=== PATIENT | female | born 1965 | race American Indian/Alaskan Native ===

== ENCOUNTER 2017-05-21 21:46 | Emergency (ER) | payer BC, OTHER ==
[2017-05-21 21:47] VITALS: BMI 29.0
[2017-05-21 22:03] VITALS: RESP 18; TEMP 97.9
--- NOTE | 2017-05-21 22:43 | ED PDOC ---
Arrival/HPI - General Chief Complaint: Upper Extremity Problem/Injury Time Seen by Provider: 05/21/17 22:29 Historian: Patient - History of Present Illness Narrative History of Present Illness (Text): 05/21/17 22:49 51 year old female, whose medical history includes hypertension, presents to the Emergency department complaining of a sudden muscle spasm in left sided neck. Initially, patient tried massaging it away but then began to feel the same stiffness across upper back and left arm. While in the Emergency department , patient is holding her neck still. Patient denies any trauma/injury, fever, chills, chest pain, shortness of breath, nausea, vomiting, diarrhea, urinary symptoms, headache, dizziness, or any other complaints. Time/Duration: Prior to Arrival Symptom Onset: Sudden Symptom Course: Unchanged Activities at Onset: Rest Past Medical History - Provider Review Nursing Documentation Reviewed: Yes - Genitourinary/Gynecological Other/Comment: fibroids - Psychiatric Hx Depression: No Hx Emotional Abuse: No Hx Physical Abuse: No Hx Substance Use: No - Suicidal Assessment Feels Threatened In Home Enviroment: No Family/Social History - Physician Review Nursing Documentation Reviewed: Yes Family/Social History: Unknown Family HX Smoking Status: Never Smoked Hx Alcohol Use: No Hx Substance Use: No Hx Substance Use Treatment: No Allergies/Home Meds Allergies/Adverse Reactions: Allergies Sulfa (Sulfonamide Antibiotics) Allergy (Verified 09/10/15 01:51) RASH Home Medications: Home Meds Medication Instructions Recorded Confirmed Deprolupra 3.75 mg IM Q30D 09/10/15 09/10/15 Review of Systems - Physician Review All systems were reviewed & negative as marked: Yes - Review of Systems Constitutional: absent: Fevers Respiratory: absent: SOB Physical Exam - Physical Exam Narrative Physical Exam (Text): Gen: NAD Head: NC Eyes: PERRL ENT: MMM, airway patent. No tongue edema. Neck: Supple. No stridor, bruit, pulsatile mass, midline tenderness. Chest: No tenderness CV: Regular rate Lungs: CTA b/l Abd: Soft, NT Back: No CVA tenderness. No midline tenderness. Extremities: No swelling or tenderness Skin: No rash Neuro: Alert, no focal deficit Vital Signs Reviewed: Yes Vital Signs Temp Pulse Resp BP Pulse Ox 05/21/17 21:58 97.9 F 68 18 151/95 H 99 Medical Decision Making ED Course and Treatment: 05/21/17 23:09 Impression: 51 year old female presents to the Emergency department complaining of a muscle spasm in the neck that radiates to the upper back and right arm. Differential Diagnosis included but are not limited to: muscle spasm Plan: -- Valium, Toradol -- Reassess and disposition Progress Notes: 05/21/17 23:54 Patient states she feels mildly better. Will discharge, continue medications and warm compresses, f/u PMD, instructed to return to ED for worsening pain, fever, vomiting, dyspnea, or any other problem. - Medication Orders Current Medication Orders: Discontinued Medications Diazepam (Valium) 5 mg PO STAT STA PRN Reason: Protocol Stop: 05/21/17 22:39 Last Admin: 05/21/17 22:51 Dose: 5 mg Ketorolac Tromethamine (Toradol) 60 mg IM STAT STA Stop: 05/21/17 22:39 Last Admin: 05/21/17 22:52 Dose: 60 mg MAR Pain Assessment Document 05/21/17 22:52 AD (Rec: 05/21/17 22:53 AD [id number]) Pain Reassessment Is this a pain reassessment? No Presence of Pain Presence of Pain Yes Pain Scale Used Pain Scale Used Numeric Description Intensity of Pain at present 8 Pain Behavior Facial Grimacing IM Administration Charges Document 05/21/17 22:52 AD (Rec: 05/21/17 22:53 AD [id number]) Injection Site MAR Injection Site Left Gluteus Jamie Charges for Administration # of IM Administrations 1 - Scribe Statement The provider has reviewed the documentation as recorded by the Scribsamuel Judd All medical record entries made by the Charlyibe were at my direction and personally dictated by me. I have reviewed the chart and agree that the record accurately reflects my personal performance of the history, physical exam, medical decision making, and the department course for this patient. I have also personally directed, reviewed, and agree with the discharge instructions and disposition. Disposition/Present on Arrival - Present on Arrival Any Indicators Present on Arrival: No History of DVT/PE: No History of Uncontrolled Diabetes: No Urinary Catheter: No History of Decub. Ulcer: No History Surgical Site Infection Following: None - Disposition Have Diagnosis and Disposition been Completed?: Yes Diagnosis: Muscle spasm Disposition: HOME/ ROUTINE Disposition Time: 23:55 Patient Plan: Discharge Condition: STABLE Discharge Instructions (ExitCare): Muscle Spasms (DC) Prescriptions: Famotidine [Pepcid] 1 tab PO BID #14 tab Ibuprofen [Motrin] 600 mg PO Q6 #25 tab Methocarbamol [Robaxin-750] 1 tab PO Q8H #12 tablet Forms: [employer] ([place])
[2017-05-22 00:41] VITALS: BP 132/85; PULSE 70; O2SAT 100
== END 2017-05-22 | disposition home or self-care (01) ==
LOC: ED 21:46
DX: M62.838 Other muscle spasm (principal); I10 Essential (primary) hypertension
CPT/HCPCS: 96372; 99284; J1885